=== PATIENT | female | born 1980 | race Caucasian/White ===

== ENCOUNTER 2017-03-09 02:11 | Emergency (ER) | payer OTHER ==
[~2017-03-09] VITALS: Ht 165.1 cm; Wt 90.0 kg
[2017-03-09 02:12] VITALS: BP 172/83; PULSE 68; RESP 16; TEMP 98.1; O2SAT 98
[2017-03-09 03:00] LABS: AUTOMATED NEUTROPHIL # 9.2 TH/MM3 (1.8-7.7); BASOPHIL # 0.1 TH/MM3 (0-0.2); BASOPHIL % 0.5 % (0.0-2.0); EOSINOPHIL # 0.1 TH/MM3 (0-0.4); EOSINOPHIL % 0.7 % (0.0-4.0); HEMO FLAGS DIFF FINAL; LYMPH % 22.4 % (9.0-44.0); LYMPHOCYTE # 2.9 TH/MM3 (1.0-4.8); MEAN CELL VOLUME 83.6 FL (80.0-100.0); MEAN CORPUSCULAR HEMOGLOBIN 28.6 PG (27.0-34.0); MEAN CORPUSCULAR HGB CONC 34.2 % (32.0-36.0); MONO % 4.8 % (0.0-8.0); NEUT % 71.6 % (16.0-70.0); PLATELET COUNT 258 TH/MM3 (150-450); RED BLOOD COUNT 4.54 MIL/MM3 (4.00-5.30); RED CELL DISTRIBUTION WIDTH 13.7 % (11.6-17.2); WHITE BLOOD COUNT 12.8 TH/MM3 (4.0-11.0)
[2017-03-09] MEDS ORDERED: ALPRAZolam 0.25 MG TAB PO ONE (03:15)
[2017-03-09 03:24] LABS: ALKALINE PHOSPHATASE 85 U/L (45-117); TOTAL BILIRUBIN ADULT 0.3 MG/DL (0.2-1.0)
[2017-03-09 03:31] LABS: ALT (GPT) 27 U/L (10-53); ANION GAP 7 MEQ/L (5-15); AST (GOT) 21 U/L (15-37); BICARBONATE 24.9 MEQ/L (21.0-32.0); BLOOD UREA NITROGEN 14 MG/DL (7-18); CHLORIDE 106 MEQ/L (98-107); GLOMERULAR FILTRATION RATE 92 ML/MIN (>89); POTASSIUM 3.9 MEQ/L (3.5-5.1); SODIUM (NA) 138 MEQ/L (136-145)
[2017-03-09 03:34] LABS: BACTERIA, URINE RARE /hpf; BLOOD, URINE NEG (NEG); COMMENT (UR) CULT NOT INDICATED; CULTURE IF INDICATED CULT NOT INDICATED; GLUCOSE,URINE NEG (NEG); HYALINE CAST, URINE 1 /lpf (RARE); KETONE, URINE NEG (NEG); MUCUS URINE FEW /lpf (OCC); NITRITE,URINE NEG (NEG); SQUAMOUS EPITHELIAL CELL URINE 3 /hpf (0-5); URINE COLOR LIGHT-YELLOW (YELLW/STRAW)
--- NOTE | 2017-03-09 04:07 | PD ---
HPI Chief Complaint: Psychiatric Symptoms Time Seen by Provider: 02:35 Travel History International Travel<30 days: No Contact w/Intl Traveler<30days: No Traveled to known affect area: No History of Present Illness HPI Patient is a 37-year-old female presenting to the emergency Department voluntarily for psychiatric evaluation. Patient denies any suicidal or homicidal ideations. She states that she has been experiencing increased anxiety and panic attacks for the last several weeks due to a situation with her son. She states her son is an addict and will be going to rehabilitation next week. He is 17 years old. She states that she feels as if she is a failure as a mother. She denies any visual auditory hallucinations, she denies any previous psychiatric history. She further denies any physical complaints at this time. Patient appears tearful and anxious. [facility] Past Medical History Medical History: Denies Significant Hx ?: Not Social History Alcohol Use: No Tobacco Use: No Substance Use: No Allergies-Medications (Allergen,Severity, Reaction): Coded Allergies: No Known Allergies (Unverified , 03/09/17) Reported Meds & Prescriptions Reported Meds & Active Scripts Active No Active Prescriptions or Reported Medications Review of Systems Except as stated in HPI: all other systems reviewed are Neg Psychiatric: Positive: Anxiety, Depression, No: Suicidal Ideations, Substance Abuse, Homicidal Ideation Physical Exam Narrative GENERAL: Well-nourished, well-developed, alert female. Appears tearful, resting in no acute distress. SKIN: Warm and dry. HEAD: Atraumatic. Normocephalic. EYES: Pupils equal and round. No scleral icterus. No injection or drainage. ENT: No nasal bleeding or discharge. Mucous membranes pink and moist. NECK: Trachea midline. No JVD. CARDIOVASCULAR: Regular rate and rhythm. RESPIRATORY: No accessory muscle use. Clear to auscultation. Breath sounds equal bilaterally. GASTROINTESTINAL: Abdomen soft, non-tender, nondistended. Hepatic and splenic margins not palpable. MUSCULOSKELETAL: Extremities without clubbing, cyanosis, or edema. No obvious deformities. NEUROLOGICAL: Awake and alert. No obvious cranial nerve deficits. Motor grossly within normal limits. Five out of 5 muscle strength in the arms and legs. Normal speech. PSYCHIATRIC: Depressed and anxious mood and affect; insight and judgment normal. Data Data Last Documented VS Vital Signs Date Time Temp Pulse Resp B/P (MAP) Pulse Ox O2 Delivery O2 Flow Rate FiO2 03/09/17 02:12 98.1 68 16 172/83 (112) 98 Room Air Orders Orders Complete Blood Count With Diff (03/09/17 02:35) Comprehensive Metabolic Panel (03/09/17 02:35) Thyroid Stimulating Hormone (03/09/17 02:35) Urinalysis - C+S If Indicated (03/09/17 02:35) Psych Screen (03/09/17 02:35) Drug Screen, Random Urine (03/09/17 02:35) Alprazolam (Xanax) (03/09/17 03:15) Labs Laboratory Tests Test 03/09/17 02:44 03/09/17 03:18 White Blood Count 12.8 TH/MM3 Red Blood Count 4.54 MIL/MM3 Hemoglobin 13.0 GM/DL Hematocrit 38.0 % Mean Corpuscular Volume 83.6 FL Mean Corpuscular Hemoglobin 28.6 PG Mean Corpuscular Hemoglobin Concent 34.2 % Red Cell Distribution Width 13.7 % Platelet Count 258 TH/MM3 Mean Platelet Volume 9.1 FL Neutrophils (%) (Auto) 71.6 % Lymphocytes (%) (Auto) 22.4 % Monocytes (%) (Auto) 4.8 % Eosinophils (%) (Auto) 0.7 % Basophils (%) (Auto) 0.5 % Neutrophils # (Auto) 9.2 TH/MM3 Lymphocytes # (Auto) 2.9 TH/MM3 Monocytes # (Auto) 0.6 TH/MM3 Eosinophils # (Auto) 0.1 TH/MM3 Basophils # (Auto) 0.1 TH/MM3 CBC Comment DIFF FINAL Differential Comment Blood Urea Nitrogen 14 MG/DL Creatinine 0.71 MG/DL Random Glucose 136 MG/DL Total Protein 7.8 GM/DL Albumin 3.3 GM/DL Calcium Level 8.8 MG/DL Alkaline Phosphatase 85 U/L Aspartate Amino Transf (AST/SGOT) 21 U/L Alanine Aminotransferase (ALT/SGPT) 27 U/L Total Bilirubin 0.3 MG/DL Sodium Level 138 MEQ/L Potassium Level 3.9 MEQ/L Chloride Level 106 MEQ/L Carbon Dioxide Level 24.9 MEQ/L Anion Gap 7 MEQ/L Estimat Glomerular Filtration Rate 92 ML/MIN Thyroid Stimulating Hormone 3rd Gen 1.620 uIU/ML Urine Color LIGHT-YELLOW Urine Turbidity HAZY Urine pH 6.0 Urine Specific [place] 1.013 Urine Protein TRACE mg/dL Urine Glucose (UA) NEG mg/dL Urine Ketones NEG mg/dL Urine Occult Blood NEG Urine Nitrite NEG Urine Bilirubin NEG Urine Urobilinogen LESS THAN 2.0 MG/DL Urine Leukocyte Esterase NEG Urine RBC 2 /hpf Urine WBC 1 /hpf Urine Squamous Epithelial Cells 3 /hpf Urine Bacteria RARE /hpf Urine Hyaline Casts 1 /lpf Urine Mucus FEW /lpf Microscopic Urinalysis Comment CULT NOT INDICATED Urine Opiates Screen NEG Urine Barbiturates Screen NEG Urine Amphetamines Screen NEG Urine Benzodiazepines Screen NEG Urine Cocaine Screen NEG Urine Cannabinoids Screen NEG MDM Medical Decision Making Medical Screen Exam Complete: Yes Emergency Medical Condition: Yes Interpretation(s) Laboratory Tests Test 03/09/17 02:44 03/09/17 03:18 White Blood Count 12.8 TH/MM3 Red Blood Count 4.54 MIL/MM3 Hemoglobin 13.0 GM/DL Hematocrit 38.0 % Mean Corpuscular Volume 83.6 FL Mean Corpuscular Hemoglobin 28.6 PG Mean Corpuscular Hemoglobin Concent 34.2 % Red Cell Distribution Width 13.7 % Platelet Count 258 TH/MM3 Mean Platelet Volume 9.1 FL Neutrophils (%) (Auto) 71.6 % Lymphocytes (%) (Auto) 22.4 % Monocytes (%) (Auto) 4.8 % Eosinophils (%) (Auto) 0.7 % Basophils (%) (Auto) 0.5 % Neutrophils # (Auto) 9.2 TH/MM3 Lymphocytes # (Auto) 2.9 TH/MM3 Monocytes # (Auto) 0.6 TH/MM3 Eosinophils # (Auto) 0.1 TH/MM3 Basophils # (Auto) 0.1 TH/MM3 CBC Comment DIFF FINAL Differential Comment Blood Urea Nitrogen 14 MG/DL Creatinine 0.71 MG/DL Random Glucose 136 MG/DL Total Protein 7.8 GM/DL Albumin 3.3 GM/DL Calcium Level 8.8 MG/DL Alkaline Phosphatase 85 U/L Aspartate Amino Transf (AST/SGOT) 21 U/L Alanine Aminotransferase (ALT/SGPT) 27 U/L Total Bilirubin 0.3 MG/DL Sodium Level 138 MEQ/L Potassium Level 3.9 MEQ/L Chloride Level 106 MEQ/L Carbon Dioxide Level 24.9 MEQ/L Anion Gap 7 MEQ/L Estimat Glomerular Filtration Rate 92 ML/MIN Thyroid Stimulating Hormone 3rd Gen 1.620 uIU/ML Urine Color LIGHT-YELLOW Urine Turbidity HAZY Urine pH 6.0 Urine Specific [place] 1.013 Urine Protein TRACE mg/dL Urine Glucose (UA) NEG mg/dL Urine Ketones NEG mg/dL Urine Occult Blood NEG Urine Nitrite NEG Urine Bilirubin NEG Urine Urobilinogen LESS THAN 2.0 MG/DL Urine Leukocyte Esterase NEG Urine RBC 2 /hpf Urine WBC 1 /hpf Urine Squamous Epithelial Cells 3 /hpf Urine Bacteria RARE /hpf Urine Hyaline Casts 1 /lpf Urine Mucus FEW /lpf Microscopic Urinalysis Comment CULT NOT INDICATED Urine Opiates Screen NEG Urine Barbiturates Screen NEG Urine Amphetamines Screen NEG Urine Benzodiazepines Screen NEG Urine Cocaine Screen NEG Urine Cannabinoids Screen NEG Vital Signs Date Time Temp Pulse Resp B/P (MAP) Pulse Ox O2 Delivery O2 Flow Rate FiO2 03/09/17 02:12 98.1 68 16 172/83 (112) 98 Room Air Differential Diagnosis Depression versus anxiety versus mood disorder versus other Narrative Course Patient presented voluntarily for psychiatric evaluation secondary to increased anxiety and depression regarding her current home situation. Her vital signs are stable, physical exam is unremarkable. Patient does appear anxious and tearful, Xanax 0.25 mg 1 dose ordered. Mental health screening discussed with the patient. Psychiatric screen ordered. Labs reviewed, no acute abdomen is identified. Patient is medically cleared for psychiatric evaluation at this time. Diagnosis Primary Impression: Medical clearance for psychiatric admission Scripts No Active Prescriptions or Reported Meds Condition: Stable Mel Mckinley Mar 09, 2017 04:07
[2017-03-09 06:27] VITALS: BP 124/78; PULSE 60; RESP 18; O2SAT 97
[2017-03-09 09:00] VITALS: BP 147/76; PULSE 71; RESP 16; TEMP 98.7; O2SAT 94
--- NOTE | 2017-03-09 11:49 | PD ---
Physical Exam Date Seen by Provider: Mar 09, 2017 Time Seen by Provider: 11:44 Data Data Last Documented VS Vital Signs Date Time Temp Pulse Resp B/P (MAP) Pulse Ox O2 Delivery O2 Flow Rate FiO2 03/09/17 06:27 60 18 124/78 (93) 97 Room Air 03/09/17 02:12 98.1 Orders Orders Complete Blood Count With Diff (03/09/17 02:35) Comprehensive Metabolic Panel (03/09/17 02:35) Thyroid Stimulating Hormone (03/09/17 02:35) Urinalysis - C+S If Indicated (03/09/17 02:35) Psych Screen (03/09/17 02:35) Drug Screen, Random Urine (03/09/17 02:35) Alprazolam (Xanax) (03/09/17 03:15) Diet Regular Basic (03/09/17 Breakfast) Ed Discharge Order (03/09/17 11:56) Labs Laboratory Tests Test 03/09/17 02:44 03/09/17 03:18 White Blood Count 12.8 TH/MM3 Red Blood Count 4.54 MIL/MM3 Hemoglobin 13.0 GM/DL Hematocrit 38.0 % Mean Corpuscular Volume 83.6 FL Mean Corpuscular Hemoglobin 28.6 PG Mean Corpuscular Hemoglobin Concent 34.2 % Red Cell Distribution Width 13.7 % Platelet Count 258 TH/MM3 Mean Platelet Volume 9.1 FL Neutrophils (%) (Auto) 71.6 % Lymphocytes (%) (Auto) 22.4 % Monocytes (%) (Auto) 4.8 % Eosinophils (%) (Auto) 0.7 % Basophils (%) (Auto) 0.5 % Neutrophils # (Auto) 9.2 TH/MM3 Lymphocytes # (Auto) 2.9 TH/MM3 Monocytes # (Auto) 0.6 TH/MM3 Eosinophils # (Auto) 0.1 TH/MM3 Basophils # (Auto) 0.1 TH/MM3 CBC Comment DIFF FINAL Differential Comment Blood Urea Nitrogen 14 MG/DL Creatinine 0.71 MG/DL Random Glucose 136 MG/DL Total Protein 7.8 GM/DL Albumin 3.3 GM/DL Calcium Level 8.8 MG/DL Alkaline Phosphatase 85 U/L Aspartate Amino Transf (AST/SGOT) 21 U/L Alanine Aminotransferase (ALT/SGPT) 27 U/L Total Bilirubin 0.3 MG/DL Sodium Level 138 MEQ/L Potassium Level 3.9 MEQ/L Chloride Level 106 MEQ/L Carbon Dioxide Level 24.9 MEQ/L Anion Gap 7 MEQ/L Estimat Glomerular Filtration Rate 92 ML/MIN Thyroid Stimulating Hormone 3rd Gen 1.620 uIU/ML Urine Color LIGHT-YELLOW Urine Turbidity HAZY Urine pH 6.0 Urine Specific [place] 1.013 Urine Protein TRACE mg/dL Urine Glucose (UA) NEG mg/dL Urine Ketones NEG mg/dL Urine Occult Blood NEG Urine Nitrite NEG Urine Bilirubin NEG Urine Urobilinogen LESS THAN 2.0 MG/DL Urine Leukocyte Esterase NEG Urine RBC 2 /hpf Urine WBC 1 /hpf Urine Squamous Epithelial Cells 3 /hpf Urine Bacteria RARE /hpf Urine Hyaline Casts 1 /lpf Urine Mucus FEW /lpf Microscopic Urinalysis Comment CULT NOT INDICATED Urine Opiates Screen NEG Urine Barbiturates Screen NEG Urine Amphetamines Screen NEG Urine Benzodiazepines Screen NEG Urine Cocaine Screen NEG Urine Cannabinoids Screen NEG MDM Supervised Visit with MICHAEL: No Narrative Course 37 YO F presents to the ED for VOLUNTARY psychiatric evaluation. Patient is experiencing significant stressors due to her teenage son being in trouble with the law. She was initially seen my LONDON Larose. Please see her note for details. She was evaluated by the psych screener and deemed appropriate for outpatient follow up with the PCP, possibly for initiation of antidepressants. I evaluated the patient and I also feel that she is safe and reliable for follow up. Will provide a few doses of Vistaril for anxiety. The patient is stable and discharged home. Diagnosis Primary Impression: Medical clearance for psychiatric admission Additional Impression: Stress due to family tension Referrals: Primary Care Physician Psychiatrist Patient Instructions: General Instructions, Stress (ED) Additional Instruction: Rest, hydrate. Minimize stressors as possible. Take Vistaril as prescribed. DO NOT drive while taking Vistaril, can cause drowsiness. Follow up with your primary care provider or psychiatrist as discussed. Return to the ED for worsening symptoms or any urgent or emergent medical condition. Scripts Hydroxyzine Pamoate (Vistaril) 50 Mg Cap 50 MG PO TID for Anxiety, #15 CAP 0 Refills Prov: Sreedhar Qureshi MD 03/09/17 Disposition: 01 DISCHARGE HOME Condition: Stable Laura Gonzalez Mar 09, 2017 11:49
[2017-03-09] MEDS ORDERED: VIST50CA PO ×2 (11:57→12:00)
== END 2017-03-09 12:11 | disposition home or self-care (01) ==
LOC: NEPD 02:11
DX: F41.9 Anxiety disorder, unspecified (principal); F32.9 Major depressive disorder, single episode, unspecified; Z63.8 Other specified problems related to primary support group
CPT/HCPCS: 80053; 80307; 81001; 84443; 85025; 99283